=== PATIENT | female | born 1950 | race Caucasian/White ===

== ENCOUNTER 2025-06-29 03:18 | Emergency (ER) | payer MEDICARE, MEDICAID ==
[~2025-06-29] VITALS: Ht 157.5 cm; Wt 87.0 kg
[2025-06-29 03:20] VITALS: BP 130/78; PULSE 89; RESP 18; O2SAT 99
--- NOTE | 2025-06-29 03:44 | Physician Documentation ---
History of Present Illness ~ Chief Complaint: Neck pain Stated Complaint: WEAKNESS,FALL Time Seen by MD: 03:41 HPI Patient presents to the emergency room with neck pain. She states she was getting out of the gurney yesterday and believe she hurt herself from this. She denies any falls or direct traumas. Patient has a poor historian his actively falling asleep while I am taking the history. Her biggest concern is her fancy packer isn't doing her laundry. She is also requesting food and shower Medication Reconciliation Allergies: Coded Allergies: codeine (Verified Allergy, Unknown, 06/29/25) Scheduled Cyclobenzaprine* (Cyclobenzaprine*), 1 TAB PO HS Review of Systems ROS All review of systems negative except as per HPI Physical Exam Vital Signs: Heart Rate: 89, Respiratory Rate: 18, BP: 130/78, Pulse Oximetry: 99, Weight: 87.000 Physical Exam General: Patient is sleeping, easily aroused in no acute distress Head: Normocephalic and atraumatic. Eyes: Conjunctival normal. EOMI. PERRL. ENT: Mucous membranes moist. Neck: Supple, trachea is midline. Tenderness to palpation to insertion site where trapezius muscles insert on bilateral occiput Chest: Clear to auscultation bilaterally without rales, rhonchi, or wheezes. There is no accessory muscle use or retractions. Cardiac: RRR without murmurs, gallops, or rubs. Abd: Soft, nondistended, nontender, with normoactive bowel sounds. No guarding, rebound, or rigidity. Extremities: Normal strength. Normal range of motion. No deformities or edema. Back: No midline spinal or CVA tenderness. Diffuse thoracic tenderness to palpation Skin: Warm and dry with no significant rash appreciated. Progress Results/Orders Results/Orders Completed Orders - PELON SPEARS MD Ibuprofen Tablet (Motrin Tablet) (06/29/25 03:50) Acetaminophen 325mg Tablet (Tylenol Tabl (06/29/25 03:50) Vital Signs 06/29/25 03:20 Pulse 89 Resp 18 B/P (MAP) 130/78 Pulse Ox 99 Medical Decision Making Findings Patient presents to the emergency room with chief complaint of neck pain. Differentials include but are not limited to fractures, dislocations, soft tissue injury. Given tenderness to palpation to insertion site of trapezius muscle on her accept but I believe she is suffering from muscle strain. No falls direct traumas and he had not feel CT scan that has necessary. Patient appears in no acute distress during my exam in [facility]. She apparently has fancy packer Departure Disposition: HOME / SELF CARE / HOMELESS Impression: Primary Impression: Torticollis Condition: Stable Discharge Instructions: Acute Torticollis, Adult Referrals: NO PRIMARY CARE PROVIDER (PCP) Prescriptions Cyclobenzaprine* (Cyclobenzaprine*) 10 Mg Tablet 1 TAB PO HS for muscle spasms for 30 Days, #30 TAB 0 Refills Prov: PELON SPEARS MD 06/29/25 Signature Scribe Signature: No scribe Attestation: The note accurately reflects work and decisions made by me.Pelon Spears MD 06/29/25 03:53 PELON SPEARS MD Jun 29, 2025 03:44
[2025-06-29] MEDS ORDERED: CYCL-1 PO (03:53)
[2025-06-29] MEDS: ibuprofen tablet 400 MG TABLET PO ONE (04:17)
== END 2025-06-29 04:48 | disposition home or self-care (01) ==
LOC: ER 03:19
DX: M43.6 Torticollis (principal); Z88.5 Allergy status to narcotic agent; Z79.899 Other long term (current) drug therapy
CPT/HCPCS: 99283